=== PATIENT | male | born 1975 | race Caucasian/White ===

== ENCOUNTER 2024-11-01 10:38 | Emergency (ER) | payer OTHER ==
[~2024-11-01] VITALS: Ht 170.2 cm; Wt 95.5 kg
[~2024-11-01 10:38] MED LIST: GABA300C PO; TRAM50TA2 PO
[2024-11-01 10:40] VITALS: TEMP 97.9
[2024-11-01] MEDS ORDERED: BUPR1TAB45 SL (10:43)
[2024-11-01 13:00] VITALS: BP 125/71; PULSE 77; RESP 17; O2SAT 97
== END 2024-11-01 13:36 | disposition home or self-care (01) ==
LOC: EMS 10:38
DX: M25.571 Pain in right ankle and joints of right foot (principal); F17.210 Nicotine dependence, cigarettes, uncomplicated; F15.10 Other stimulant abuse, uncomplicated; Z79.899 Other long term (current) drug therapy
CPT/HCPCS: 99283